=== PATIENT | female | born 1955 ===

== ENCOUNTER 2017-01-18 08:48 | Day surgery (SDC) | payer SELFPAY ==
[2017-01-16 10:49] VITALS: BMI 29.7
[2017-01-18 10:19] VITALS: RESP 18
[2017-01-18] MEDS ORDERED: Lactated Ringer's 1,000 ML IV ONE (10:40)
--- NOTE | 2017-01-18 11:04 | CP.SDSHP ---
Same Day Surgery H & P - History Proposed Procedure: left excions of soft tissue mass Pre-Op Diagnosis: left soft tissue mass removal - Previous Medical/Surgical History Cardiac: Hypertension Pain: 4.Moderate Pain Previous Surgical History: hysterectomy - Allergies Allergies: Allergies No Known Allergies Allergy (Verified 01/18/17 09:59) - Current Medications Current Medications: HCTZ - Physical Exam Vital Signs: Vital Signs 01/18/17 10:16 Temperature 98.4 F Pulse Rate 63 Respiratory 18 Rate Blood Pressure 138/82 O2 Sat by Pulse 95 Oximetry Mental Status: Alert & Oriented x3 Neuro: WNL Heart: WNL Lungs: WNL GI: WNL - {Optional Preform as Required} Integument: Other (soft tissue mass noted to posterior ankle by achilles tendon) - Impression Impression: Pt was seen and examined in SDS. Pt NPO status was confirmed. All Pre-op testing and clearance was in the chart. Pt has exhausted all conservative treatment at this time and is opting for surgical intervention. Pt was explained procedure and post-operative course. All pt's questions were answered to satisfaction. No guarantees were made. Pt understands all risks, benefits and complications of procedure. Pt will follow-up with Dr. Lozano Short Stay Discharge - Short Stay Discharge Admitting Diagnosis/Reason for Visit: Z14.9 Disposition: HOME/ ROUTINE Referrals: Nessa Gibson MD [Primary Care Provider] - Instructions: Cephalexin (By mouth), Oxycodone/Acetaminophen (By mouth) Additional Instructions (Diet, Activity): Patient in good condition for discharge home. Pt to resume medications per medical reconciliation. Resume regular diet. Please keep dressing clean, dry, & intact to surgical site, use plastic bag over bandage for showering, wear post op shoe at all times when ambulating, call clinic if you see signs of infection (redness, swelling, malodor), please make an appointment to see Dr. Lozano in clinic within 1 week for post-op check. You will be given prescriptions for post-operative medication on the day of surgery, after your surgery is complete. It is your responsibility as the patient to bring us any forms or documents you need filled out and/or signed. If you need to speak to a nurse in our clinic please call [phone] and someone will answer the phone Monday from 9AM 5PM. Please leave a message at all other times. If you need to fax our clinic a document, our fax number is: [phone]. For all after-hour concerns: The on-call pager number is [phone]. The pager is held by a podiatry resident 20/03. You can use this to contact the resident physicians if your have any serious concerns either before or after your surgery. Examples of serious after-hour concerns are foul smelling odor with purulent drainage, completely saturated with blood dressings , tight cast that you cannot fit two fingers into, and individual ascending red streaks up the leg. Please keep in mind that prescriptions cannot be signed nor called into the pharmacy by residents of the [facility]. As the patient, it is your job to schedule a post-operative appointment at our clinic. The appointment scheduling phone number is: . Progress Note/Discharge Note with Instructions: - Patient evaluated bedside in recovery s/p surgical procedure. - After surgical procedure patient in NAD - (+) Void, (+) Appetite - Capillary refill time <3s and NVSI intact. - Patient denies complaints at this time - Post operative instructions and plan of care explained to patient at length. - Pt. acknowledges understanding. - Patient stable for DC per podiatric surgery
--- NOTE | 2017-01-18 11:06 | CP.PCM.PN ---
Subjective - Date & Time of Evaluation Date of Evaluation: 01/18/17 Time of Evaluation: 11:04 - Subjective Subjective: 61 year old female with PMH of HTN was seen in [facility] for pre-operative evaluation for left soft tissue mass removal with Dr. Lozano today. Patient has had this soft tissue lesion on the back of her ankle for 3 years, patient denies that it has grown in size but admits to some pain and now would like surgical intervention. NPO status confirmed. Patient is NAD and AAOx3, denies n/v/f/c/ sob/cp. Objective - Vital Signs/Intake and Output Vital Signs (last 24 hours): Temp Pulse Resp BP Pulse Ox 98.4 F 63 18 138/82 95 01/18/17 10:16 01/18/17 10:16 01/18/17 10:16 01/18/17 10:16 01/18/17 10:16 - Constitutional Appears: Well, Non-toxic, No Acute Distress - Extremities Exam Additional comments: Vasc:DP and PT pulses palpable 2/4 b/l. CFT < 3 seconds to all digits b/l. Skin temperature warm to warm from proximal to distal b/l. Neuro: Gross sensation intact b/l. Derm: Skin is well hydrated. No open lesions noted. Nails 1-5 b/l WNL for thickness and lenght. Webspaces 1-4 b/l are CDI. Ortho: Small mass noted to the posterior aspect of the achilles tendon on the left, that is painful to palpation - Neurological Exam Neurological Exam: Alert, Awake, Oriented x3 - Psychiatric Exam Psychiatric exam: Normal Affect, Normal Mood Assessment and Plan - Assessment and Plan (Free Text) Assessment: 61 year old female who presents to [facility] for removal of soft tisue mass to left achilles ankle Plan: Pt was seen and examined in [facility] Pt NPO status was confirmed All Pre-op testing and clearance was in the chart Pt has exhausted all conservative treatment at this time and is opting for surgical intervention Pt was explained procedure and post-operative course All pt's questions were answered to satisfaction No guarantees were made Pt understands all risks, benefits and complications of procedure Pt will follow-up with Dr. Lozano
[2017-01-18] MEDS ORDERED: Lidocaine 1% Inj (20ml) IJ ONE ×2 (11:11→12:00)
[2017-01-18] MEDS ORDERED: Bupivacaine 0.5% Inj(30mL) IJ ONE ×2 (11:11→12:00)
[2017-01-18] MEDS ORDERED: Bupivacaine 0.5% Inj(30mL) ONE (12:37)
[2017-01-18] MEDS ORDERED: Lidocaine 1% Inj (20ml) ONE (12:37)
--- NOTE | 2017-01-18 12:40 | PCM.SURG1 ---
Surgeon's Initial Post Op Note - Surgeon's Notes Surgeon: Dr. Lozano Banquet Server: Dr. López PGY-1, Dr. Florentino PGY-2 Type of Anesthesia: IV Sedation, Local Anesthesia Administered By: Dr. Mckinnon Pre-Operative Diagnosis: left ankle soft tissue mass Operative Findings: see dictation. 15mL 1:1 mix 1% lidocaine plain, 0.5% marcaine plain. 3-0 vicryl, 4-0 nylon Post-Operative Diagnosis: same as preop Operation Performed: left ankle soft tissue mass excision Specimen/Specimens Removed: soft tissue mass Estimated Blood Loss: EBL {In ML}: 1 Blood Products Given: N/A Drains Used: No Drains Post-Op Condition: Good Date of Surgery/Procedure: 01/18/17 Time of Surgery/Procedure: 12:00
[2017-01-18] MEDS ORDERED: Oxycodone/Acetaminophen 5/325 mg Tab PO PRN ×2 (12:41)
[2017-01-18] MEDS ORDERED: HYDROmorphone 0.5 mg/0.5 ml ISec IVP PRN (12:46)
[2017-01-18 16:17] VITALS: O2SAT 96
[2017-01-18 16:41] VITALS: BP 116/78; PULSE 78; TEMP 97.4
--- NOTE | 2017-01-18 21:04 | OP ---
PROCEDURE DATE: 01/18/2017 SURGEON: Dr. Patric Lozano. AUDIOVISUAL LEAD TECHNICIAN: Dr. Litzy Leavitt, PGY1, Dr. Florentino____, PGY-2. APPLICATIONS COORDINATOR: Dr. Mckinnon. ANESTHESIA: IV sedation with local. PREOPERATIVE DIAGNOSIS: Left ankle soft tissue mass. POSTOPERATIVE DIAGNOSIS: Left ankle soft tissue mass. PROCEDURE PERFORMED: Left ankle soft tissue mass removal. INDICATIONS: The patient is a 61-year-old female with the above diagnoses. The patient has exhausted all conservative treatment at this time and is now requiring surgical intervention. The patient signed the consent after careful explanation of all the risks, benefits, and complications of the surgical procedure. No guarantees were given nor implied. PREPARATION: The patient was brought to the operating room and placed on the operating room table in the prone position. After IV sedation was achieved, A total of 15 mL of 1:1 mixture of 1% lidocaine plain and 0.5% Marcaine plain was given in a local V block fashion to the posterior ankle. the patient was then prepped and draped in normal sterile manner and the procedure began. The high ankle tourniquet was then turned up to 250 mmHg and the procedure began. DESCRIPTION OF PROCEDURE: Attention was then directed to the posterior aspect of the left ankle where a 3 cm curvilinear incision was made transversely over the palpable mass approximately 2 cm above the ankle posteriorly. Using blunt dissection, the incision was continued down to subcutaneous tissue. It should be noted that care was taken to identify and retract all vital neurovascular structures. Upon dissection, a fluctuant, well circumscribed, soft tissue mass was noted. Carefully using blunt dissection and an Iris scissor, the soft tissue mass was excised and passed from the operative field. All bleeders were cauterized and ligated as necessary. The wound was then irrigated with copious amounts of sterile normal saline. The subcutaneous tissue was then reapproximated using 3-0 Vicryl in a simple stitch manner and 4-0 nylon was used to reapproximate the skin. The incision site was then dressed with damp 4 x 4 gauze in a wet to dry fashion with Boris, Kerlix and David. POSTOPERATIVE CONDITION: The patient tolerated the anesthesia and procedure well and was transferred to the recovery room with vital signs stable and neurovascular status intact to the left ankle. The patient will be weightbearing as tolerated and will follow up with Dr. Lozano as an outpatient. LITZY LEAVITT DPM Patric Lozano DPM cc: [id number] TT: 01/18/2017 21:03:36 jn MTDD
== END 2017-01-18 16:50 | disposition home or self-care (01) ==
LOC: H.OPSURG 08:48
PROVIDERS: ATTEND Podiatrist
DX: D16.22 Benign neoplasm of long bones of left lower limb (principal)

== ENCOUNTER 2017-02-09 18:47 | Emergency (ER) | payer OTHER ==
[2017-02-09 18:47] VITALS: BMI 29.7
[2017-02-09 18:55] VITALS: BP 149/97; PULSE 69; RESP 16; TEMP 98.5; O2SAT 100
--- NOTE | 2017-02-09 19:23 | ED PDOC ---
HPI: Back Time Seen by Provider: 02/09/17 18:57 Chief Complaint (Nursing): Back Pain Chief Complaint (Provider): Back Pain History Per: Patient Onset/Duration Of Symptoms: Persistent Current Symptoms Are (Timing): Still Present Quality Of Discomfort: "Pain" Additional Complaint(s): Laveren Mireles is a 61 y/o female presenting to the ER on 02/09/2017 with worsening back pain for several days. Patient has had intermittent low back pain for several years but for the past few days pain is worse. She denies any fall or trauma. Patient took advil but this did not help the pain. She denies radiation of pain and denies any acute bowel or bladder dysfunction. She rates current pain as 7/10. Past Medical History Reviewed: Historical Data, Nursing Documentation, Vital Signs Vital Signs: Last Vital Signs Temp 98.5 F 02/09/17 18:52 Pulse 69 02/09/17 18:52 Resp 16 02/09/17 18:52 BP 149/97 H 02/09/17 18:52 Pulse Ox 100 02/09/17 18:52 - Medical History PMH: HTN, Hypercholesterolemia (not taking meds) - Surgical History Other surgeries: Left ankle cyst removal, fibroid removal - Family History Family History: States: Diabetes (Father from diabetes), Hypertension (Mother has high blood pressure) - Living Arrangements Living Arrangements: With Family - Social History Current smoker - smoking cessation education provided: No Alcohol: None Drugs: Denies - Home Medications Home Medications: Ambulatory Orders Medication Instructions Recorded Cephalexin [Keflex] 500 mg PO TID 01/18/17 Hydrochlorothiazide [Microzide] 12.5 mg PO DAILY 01/18/17 oxyCODONE/Acetaminophen [Percocet 5 - 325 mg PO Q4 PRN 01/18/17 5/325 mg Tab] - Allergies Allergies/Adverse Reactions: Allergies Allergy/AdvReac Type Severity Reaction Status Date / Time No Known Allergies Allergy Verified 01/18/17 09:59 Review of Systems ROS Statement: Except As Marked, All Systems Reviewed And Found Negative Constitutional: Negative for: Fever, Chills Cardiovascular: Negative for: Chest Pain Respiratory: Negative for: Cough Gastrointestinal: Negative for: Nausea, Vomiting Genitourinary Female: Negative for: Dysuria, Frequency, Incontinence, Hematuria Musculoskeletal: Positive for: Back Pain. Negative for: Leg Pain Neurological: Negative for: Weakness, Numbness Physical Exam - Reviewed Nursing Documentation Reviewed: Yes Vital Signs Reviewed: No - Physical Exam Appears: Positive for: Well, Non-toxic, No Acute Distress Head Exam: Positive for: ATRAUMATIC, NORMOCEPHALIC Skin: Positive for: Normal Color. Negative for: Rash Eye Exam: Positive for: Normal appearance Cardiovascular/Chest: Positive for: Regular Rate, Rhythm Respiratory: Positive for: Normal Breath Sounds Back: Positive for: Vertebral Tenderness (tenderness across lower lumbar region , no step off or midline tenderness). Negative for: L CVA Tenderness, R CVA Tenderness Extremity: Positive for: Normal ROM. Negative for: Deformity, Swelling Neurologic/Psych: Positive for: Alert, Oriented, Gait (steady ). Negative for: Motor/Sensory Deficits - ECG O2 Sat by Pulse Oximetry: 100 Pulse Ox Interpretation: Normal Medical Decision Making Medical Decision Makin:57 Initial Impression- Acute on chronic back pain Plan: Toradol IM Patient with chronic back pain for several years, worse in last couple of days. No neurological deficits noted on exam, patient is ambulatory with steady gait. Patient requested MRI of lumbar spine. Patient was instructed she will need to follow up with primary doctor to obtain authorization for MRI as outpatient. Pt refused toradol injection and left ED before treatment was complete. Documented by Alex Hutton, acting as a scribe for Nelida Mccoy PA-C All medical record entries made by the Scribe were at my direction and personally dictated by me. I have reviewed the chart and agree that the record accurately reflects my personal performance of the history, physical exam, medical decision making, and the department course for this patient. I have also personally directed, reviewed, and agree with the discharge instructions and disposition. Disposition - Clinical Impression Clinical Impression: Back pain, Chronic back pain - Patient ED Disposition Is Patient to be Admitted: No - Disposition Disposition: Eloped (Patient left ED before treatment complete) Disposition Time: 20:01 Condition: UNKNOWN
== END 2017-02-09 19:20 | disposition left against medical advice (07) ==
LOC: H.ER 18:47
DX: M54.5 Low back pain (principal); G89.29 Other chronic pain; M54.9 Dorsalgia, unspecified

== ENCOUNTER 2017-05-06 06:57 | Observation (INO) | payer BC, OTHER ==
[2017-05-06 06:58] VITALS: BMI 29.7
[2017-05-06 07:30] VITALS: BP 117/82; PULSE 69; RESP 18; TEMP 98.6; O2SAT 97
--- NOTE | 2017-05-06 07:31 | ED PDOC ---
HPI: Chest Pain Time Seen by Provider: 05/06/17 07:20 Chief Complaint (Nursing): Chest Pain Chief Complaint (Provider): Chest Pain History Per: Patient History/Exam Limitations: no limitations Current Symptoms Are (Timing): Still Present Additional Complaint(s): Laverne is a 61 y/o female with a past medical history of hypertension, hypercholesterolemia, and TIA, who presents to the ED complaining of mid- sternal chest pain radiating to left arm, onset last night. States the chest pressure is constant, but left arm pain comes and goes. Patient had a Neurology appointment yesterday, and was told her blood pressure was high. Denies any associated shortness of breath, nausea, or vomiting. Patient reports compliance with taking daily Aspirin. PMD: [facility] Past Medical History Reviewed: Historical Data, Nursing Documentation, Vital Signs Vital Signs: Last Vital Signs Temp 98.6 F 05/06/17 07:26 Pulse 69 05/06/17 07:26 Resp 18 05/06/17 07:26 BP 117/82 05/06/17 07:26 Pulse Ox 97 05/06/17 07:26 - Medical History PMH: HTN, Hypercholesterolemia, TIA Denies: Chronic Kidney Disease - Surgical History Other surgeries: Colonoscopy, left ankle cyst removal - Family History Family History: States: Diabetes (Father from diabetes), Hypertension (Mother has high blood pressure) - Social History Current smoker - smoking cessation education provided: No Alcohol: Social Drugs: Denies - Immunization History Hx Tetanus Toxoid Vaccination: No Hx Influenza Vaccination: No Hx Pneumococcal Vaccination: No - Home Medications Home Medications: Ambulatory Orders Medication Instructions Recorded Aspirin [Ecotrin] 81 mg PO DAILY #30 04/14/17 Atorvastatin [Lipitor] 40 mg PO DIN #30 tab 04/14/17 hydroCHLOROthiazide [Microzide] 12.5 mg PO DAILY #14 cap 04/14/17 - Allergies Allergies/Adverse Reactions: Allergies Allergy/AdvReac Type Severity Reaction Status Date / Time No Known Allergies Allergy Verified 04/12/17 15:23 PANCHO Risk Score for UA/NSTEMI - PANCHO Risk Score Age > 64: NO 3 or more CAD Risk Factors: YES Known CAD (Stenosis greater than 50%): NO Aspirin use in past 7 days: YES Severe Angina: NO EKG ST changes greater than 0.5mm: NO Positive Cardiac Marker: NO PANCHO Score: 2 Risk %: 8% Review of Systems ROS Statement: Except As Marked, All Systems Reviewed And Found Negative Cardiovascular: Positive for: Chest Pain Respiratory: Negative for: Shortness of Breath Gastrointestinal: Negative for: Nausea, Vomiting Musculoskeletal: Positive for: Arm Pain (left) Physical Exam - Reviewed Nursing Documentation Reviewed: Yes Vital Signs Reviewed: Yes - Physical Exam Appears: Positive for: Non-toxic, No Acute Distress Head Exam: Positive for: ATRAUMATIC, NORMAL INSPECTION, NORMOCEPHALIC Skin: Positive for: Normal Color, Warm, Dry Eye Exam: Positive for: EOMI, Normal appearance, PERRL Neck: Positive for: Normal, Painless ROM, Supple Cardiovascular/Chest: Positive for: Regular Rate, Rhythm. Negative for: Murmur Respiratory: Positive for: Normal Breath Sounds. Negative for: Accessory Muscle Use, Respiratory Distress Gastrointestinal/Abdominal: Positive for: Normal Exam, Soft. Negative for: Tenderness Back: Positive for: Normal Inspection. Negative for: L CVA Tenderness, R CVA Tenderness, Vertebral Tenderness Extremity: Positive for: Normal ROM, Capillary Refill (< 2 sec). Negative for: Deformity Neurologic/Psych: Positive for: Alert, Oriented. Negative for: Motor/Sensory Deficits - Laboratory Results Result Diagrams: 05/06/17 07:45 05/06/17 07:45 - Radiology X-Ray: Interpreted by Me, Viewed By Me X-Ray Interpretation: No Acute Disease Medical Decision Making Medical Decision Making: Time: 07:34 Initial Impression: Chest pain Initial Plan: --EKG --CMP --Troponin I --CBC --PTT --Prothrombin time --Urine dipstick --Urinalysis --Chest X-Ray Time: 08:36 --Given 325 mg PO --Paged [facility] practice resident for consult Time: 08:46 --Patient will be admitted inpatient to Observation Telemetry for chest pain, under the service of Dr. Gaitan. Scribe Attestation: Documented by Margaret Carmona, acting as a scribe for Jyoti Cortez MD Provider Scribe Attestation: All medical record entries made by the Scribe were at my direction and personally dictated by me. I have reviewed the chart and agree that the record accurately reflects my personal performance of the history, physical exam, medical decision making, and the department course for this patient. I have also personally directed, reviewed, and agree with the discharge instructions and disposition. Disposition - Clinical Impression Clinical Impression: Chest pain - Patient ED Disposition Is Patient to be Admitted: Yes - Disposition Disposition Time: 08:46 Condition: STABLE - Pt Status Changed To: Hospital Disposition Of: Observation - POA Present On Arrival: None
[2017-05-06 08:00] LABS: ALB/GLOB RATIO 1.3 (1.0-2.1); ALKALINE PHOSPHATASE 100 U/L (38-126); ALT/SGPT 30 U/L (9-52); AST/SGOT 27 U/L (14-36); BILIRUBIN,TOTAL 0.5 mg/dl (0.2-1.3); BLOOD UREA NITROGEN 16 mg/dl (7-17); CALCIUM 9.6 mg/dL (8.4-10.2); CARBON DIOXIDE 30 mmol/L (22-30); CHLORIDE 99 mmol/L (98-107); GFR AFRICAN-AMERICAN > 60; GLUCOSE,RANDOM 109 mg/dL (65-105); POTASSIUM 4.1 MMOL/L (3.6-5.0); SODIUM 140 mmol/l (132-148); TOTAL PROTEIN 7.7 G/DL (6.3-8.2)
[2017-05-06 08:02] LABS: BASO % 0.4 % (0.0-2.0); EOS # 0.1 K/uL (0.0-0.7); EOS % 1.7 % (0.0-4.0); LYMPH # 2.4 K/uL (1.0-4.3); MEAN CELL VOLUME 82.3 fl (81.0-99.0); MEAN CORPUSCULAR HEMOGLOBIN 27.8 pg (27.0-31.0); MEAN CORPUSCULAR HGB CONC 33.8 g/dL (33.0-37.0); MEAN PLATELET VOLUME 8.7 fl (7.2-11.7); MONO # 0.7 K/uL (0.0-0.8); NEUT % 60.9 % (50.0-75.0); RED CELL DISTRIBUTION WIDTH 13.6 % (11.5-14.5); WHITE BLOOD COUNT 8.2 K/uL (4.8-10.8)
[2017-05-06 08:06] LABS: PARTIAL THROMBOPLASTIN TIME 36.7 Seconds (25.6-37.1)
[2017-05-06 09:00] LABS: RBC URINE 2 /hpf (0-3); URINE BILIRUBIN NEGATIVE (NEGATIVE); URINE BLOOD NEGATIVE (NEGATIVE); URINE COLOR YELLOW (YELLOW); URINE GLUCOSE (UA) NEG (Normal); URINE KETONE NEGATIVE (NEGATIVE); URINE LEUKOCYTE ESTERASE NEG Leu/uL (Negative); URINE PROTEIN NEGATIVE (NEGATIVE); URINE UROBILINOGEN 0.2-1.0 mg/dL (0.2-1.0); WBC URINE < 1 /hpf (0-5)
--- NOTE | 2017-05-06 10:02 | RAD ---
HISTORY: Chest pain. Portable study at upright 07:40. COMPARISON: 11/17/2016. FINDINGS: LUNGS: No active pulmonary disease. PLEURA: No significant pleural effusion identified, no pneumothorax apparent. CARDIOVASCULAR: No radiographic findings to suggest acute or significant cardiovascular disease. OSSEOUS STRUCTURES: No significant abnormalities. VISUALIZED UPPER ABDOMEN: Normal. OTHER FINDINGS: None. IMPRESSION: No active disease. No significant interval change compared to the prior examination(s).
--- NOTE | 2017-05-06 11:08 | CP.PCM.PN ---
Subjective - Date & Time of Evaluation Date of Evaluation: 05/06/17 Time of Evaluation: 09:26 - Subjective Subjective: Pt was seen, examined, and evaluated in the ER for complaints of chest pain. BP 117/82. Physical exam wnl including RRR, normal S1 S2, no murmurs, no JVD, no hepatojugular reflex, no wheezing, no rhonchi, no adventitious sounds, and no abdominal tenderness. Labs and CXR wnl. When seen for a second time following her admission refusal, she stated she only wanted have her blood pressure checked. Despite explaining at length the reasons to stay and potential negative consequences of leaving prematurely, she declined to be admitted.
--- NOTE | 2017-05-08 11:23 | CARD ---
APPROVED REPORT EKG Measurement Heart [id number] <Conclusion> Normal sinus rhythm Normal ECG
== END 2017-05-06 10:15 | disposition left against medical advice (07) ==
LOC: H.ER 06:57 → H.ERHOLD 08:46
PROVIDERS: ADMIT Family Medicine Geriatric Medicine; ATTEND Family Medicine Geriatric Medicine
DX: R07.9 Chest pain, unspecified (principal); E11.9 Type 2 diabetes mellitus without complications; I10 Essential (primary) hypertension; E78.00 Pure hypercholesterolemia, unspecified; Z86.73 Personal history of transient ischemic attack (TIA), and cerebral infarction without residual deficits; Z79.82 Long term (current) use of aspirin
CPT/HCPCS: 71010; 80053; 81003; 84484; 85025; 85610; 85730; 93005; 99283; G0378

== ENCOUNTER 2017-06-09 18:07 | Emergency (ER) | payer MEDICAID, OTHER ==
[2017-06-09 18:07] VITALS: BMI 29.7
[2017-06-09 18:23] VITALS: BP 143/86; PULSE 78; RESP 16; TEMP 98.9; O2SAT 98
--- NOTE | 2017-06-09 21:03 | ED PDOC ---
HPI: CCC, URI, Sore Throat Time Seen by Provider: 06/09/17 18:29 Chief Complaint (Nursing): Cough, Cold, Congestion Chief Complaint (Provider): COugh History Per: Patient History/Exam Limitations: no limitations Have you had recent travel within the past 21 days to any of the following countries: [place], [place], [place] or [place]?: No Onset/Duration Of Symptoms: Days Current Symptoms Are (Timing): Still Present Additional History Per: Patient Additional Complaint(s): Patient present for evaluation of a non-productive cough, present for the past 3 weeks. she reports she followed up with her PCP who informed her the symptoms were due to her blood pressure medication; patient is unsure of her old back pain meds but states her new medications are HCTZ, Amlodopine, Lisinopril. She states her cough has worsened after taking these medications. She denies any fever,chest pain, hemoptysis, shortness of breath. She offers no other medical complaints. Past Medical History Reviewed: Historical Data Vital Signs: Last Vital Signs Temp 98.9 F 06/09/17 18:20 Pulse 78 06/09/17 18:20 Resp 16 06/09/17 18:20 BP 143/86 06/09/17 18:20 Pulse Ox 98 06/09/17 21:26 - Medical History PMH: HTN, Hypercholesterolemia, TIA Denies: Chronic Kidney Disease - Surgical History Surgical History: No Surg Hx - Family History Family History: States: Diabetes (Father from diabetes), Hypertension (Mother has high blood pressure) - Immunization History Hx Tetanus Toxoid Vaccination: No Hx Influenza Vaccination: No Hx Pneumococcal Vaccination: No - Home Medications Home Medications: Ambulatory Orders Medication Instructions Recorded Aspirin [Ecotrin] 81 mg PO DAILY #30 04/14/17 Atorvastatin [Lipitor] 40 mg PO DIN #30 tab 04/14/17 hydroCHLOROthiazide [Microzide] 12.5 mg PO DAILY #14 cap 04/14/17 Albuterol HFA [Ventolin HFA 90 2 puff IH [id number] PRN #60 puff 06/09/17 mcg/actuation (8 g)] Azithromycin [Zithromax] 250 mg PO DAILY #6 tab 06/09/17 Benzonatate [Tessalon Perle] 100 mg PO Q8 PRN #30 capsule 06/09/17 - Allergies Allergies/Adverse Reactions: Allergies Allergy/AdvReac Type Severity Reaction Status Date / Time No Known Allergies Allergy Verified 04/12/17 15:23 Review of Systems Constitutional: Negative for: Fever, Chills Cardiovascular: Negative for: Chest Pain Respiratory: Positive for: Cough. Negative for: Shortness of Breath, Hemoptysis Physical Exam - Reviewed Nursing Documentation Reviewed: Yes Vital Signs Reviewed: Yes - Physical Exam Appears: Positive for: Non-toxic, No Acute Distress Skin: Positive for: Warm, Dry Eye Exam: Positive for: EOMI, PERRL ENT: Positive for: Normal ENT Inspection, TM Is/Are (normal ). Negative for: Pharyngeal Erythema, Tonsillar Exudate, Tonsillar Swelling Neck: Positive for: Supple Cardiovascular/Chest: Positive for: Regular Rate, Rhythm Respiratory: Positive for: Normal Breath Sounds. Negative for: Respiratory Distress - ECG O2 Sat by Pulse Oximetry: 98 (RA) Pulse Ox Interpretation: Normal - Radiology X-Ray: Interpreted by Me (CXR) X-Ray Interpretation: No Acute Disease Medical Decision Making Medical Decision Making: Time: 1852 Impression: URI Plan: -- Chest X-Ray Reassess Time: 1919 Chest X-Ray reviewed and shows to acute distress. Stable for d/c home. Scribe Attestation: Documented by Julianne Sullivan acting as a scribe for NILAM Mcdonald Provider Attestation: All medical record entries made by the Scribe were at my direction and personally dictated by me. I have reviewed the chart and agree that the record accurately reflects my personal performance of the history, physical exam, medical decision making, and the department course for this patient. I have also personally directed, reviewed, and agree with the discharge instructions and disposition. Disposition - Clinical Impression Clinical Impression: Cough - Patient ED Disposition Is Patient to be Admitted: No - Disposition Referrals: [facility] [Outside] [facility] [Outside] Disposition: Routine/Home Disposition Time: 20:55 Condition: STABLE Prescriptions: Albuterol HFA [Ventolin HFA 90 mcg/actuation (8 g)] 2 puff IH [id number] PRN #60 puff PRN Reason: Cough Azithromycin [Zithromax] 250 mg PO DAILY #6 tab Benzonatate [Tessalon Perle] 100 mg PO Q8 PRN #30 capsule PRN Reason: Cough Instructions: Acute Cough (ED) Forms: [employer] (Nepali) Print Language: AFGHAN
--- NOTE | 2017-06-10 10:43 | RAD ---
HISTORY: cough COMPARISON: 05/06/2017 TECHNIQUE: Chest PA and lateral FINDINGS: LUNGS: No active pulmonary disease. PLEURA: No significant pleural effusion identified. No pneumothorax apparent. CARDIOVASCULAR: Unchanged. OSSEOUS STRUCTURES: No significant abnormalities. VISUALIZED UPPER ABDOMEN: Normal. OTHER FINDINGS: None. IMPRESSION: No active disease.
== END 2017-06-09 19:45 | disposition home or self-care (01) ==
LOC: H.ER 18:07
DX: R05 Cough (principal); E78.00 Pure hypercholesterolemia, unspecified; I10 Essential (primary) hypertension; Z79.82 Long term (current) use of aspirin; Z86.73 Personal history of transient ischemic attack (TIA), and cerebral infarction without residual deficits

== ENCOUNTER 2017-12-05 11:01 | Emergency (ER) | payer MEDICAID ==
[2017-12-05 11:01] VITALS: BMI 28.5
[2017-12-05 11:18] VITALS: BP 149/89; PULSE 76; RESP 21; TEMP 99; O2SAT 98
--- NOTE | 2017-12-05 13:24 | ED PDOC ---
Upper Extremity Pain/Injury Time Seen by Provider: 12/05/17 12:18 Chief Complaint (Nursing): Upper Extremity Problem/Injury Chief Complaint (Provider): Upper Extremity Pain History Per: Patient History/Exam Limitations: language barrier Onset/Duration Of Symptoms: Days Current Symptoms Are (Timing): Still Present Additional Complaint(s): Laverne Crain is a 62 year old female with a past medical history of hypertension, gastroesophageal reflux disease, and cardiac disorders, who is presenting to the ED with complaints of worsening upper back pain with associated neck, right shoulder and arm pain, onset a few days ago. 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 She reports that last year in April, she was diagnosed with a Stroke at [place], and she followed up with a neurologist. Patient reports feeling feverish and mild numbness and discomfort in her arm and shoulder, with radiating pain to the back. She denies any injury, fall, or trauma. Note: patient reported additional complaints regarding her blood pressure medications, but reports that she will be seeing her PMD regarding this issue tomorrow. PMD: Vic Shanks Past Medical History Reviewed: Historical Data, Nursing Documentation, Vital Signs Vital Signs: Last Vital Signs Temp 99.0 F 12/05/17 11:18 Pulse 76 12/05/17 11:18 Resp 21 12/05/17 11:18 BP 149/89 12/05/17 11:18 Pulse Ox 98 12/05/17 11:18 - Medical History PMH: GERD, HTN, Hypercholesterolemia, TIA Denies: Chronic Kidney Disease - Surgical History Other surgeries: hysterectomy - Family History Family History: States: Diabetes (Father from diabetes), Hypertension (Mother has high blood pressure) - Social History Alcohol: Social - Immunization History Hx Tetanus Toxoid Vaccination: No Hx Influenza Vaccination: No Hx Pneumococcal Vaccination: No - Home Medications Home Medications: Ambulatory Orders Medication Instructions Recorded amLODIPine [Norvasc] 5 mg PO DAILY 30 Days #30 tab 06/16/17 Famotidine [Pepcid] 1 tab PO BID #30 tab 09/05/17 Naproxen Sodium 550 mg PO TID #30 tablet 12/05/17 - Allergies Allergies/Adverse Reactions: Allergies Allergy/AdvReac Type Severity Reaction Status Date / Time No Known Allergies Allergy Verified 12/05/17 11:36 Review of Systems ROS Statement: Except As Marked, All Systems Reviewed And Found Negative Constitutional: Positive for: Fever (subjective) Musculoskeletal: Positive for: Neck Pain (mild), Shoulder Pain (right), Arm Pain (right), Back Pain (upper) Neurological: Positive for: Numbness (mild) Physical Exam - Reviewed Nursing Documentation Reviewed: Yes Vital Signs Reviewed: Yes - Physical Exam Appears: Positive for: Non-toxic, No Acute Distress Head Exam: Positive for: ATRAUMATIC, NORMAL INSPECTION, NORMOCEPHALIC Skin: Positive for: Normal Color Eye Exam: Positive for: Normal appearance Neck: Positive for: Normal Cardiovascular/Chest: Positive for: Regular Rate, Rhythm. Negative for: Gallop , Murmur Respiratory: Positive for: Normal Breath Sounds. Negative for: Respiratory Distress Gastrointestinal/Abdominal: Positive for: Normal Exam, Soft. Negative for: Tenderness Back: Positive for: Normal Inspection. Negative for: L CVA Tenderness, R CVA Tenderness, Vertebral Tenderness Extremity: Positive for: Normal ROM, Capillary Refill (normal, less than 2 seconds), Other (5/5 strength ). Negative for: Deformity, Swelling Neurologic/Psych: Positive for: Alert, Oriented. Negative for: Motor/Sensory Deficits - ECG O2 Sat by Pulse Oximetry: 98 (RA) Pulse Ox Interpretation: Normal Medical Decision Making Medical Decision Making: Time: 12:40 Plan: --Flexeril 10 mg PO --Toradol 60 mg IM --Tylenol 650 mg PO --Right Shoulder X-Ray X-Ray: No calcific tendonitis. No fractures. No dislocations. No separations. Normal X- Ray. No acute findings. Scribe Attestation: Documented by Yumiko Burton, acting as a scribe for Arnoldo San PA-C Provider Scribe Attestation: All medical record entries made by the Scribe were at my direction and personally dictated by me. I have reviewed the chart and agree that the record accurately reflects my personal performance of the history, physical exam, medical decision making, and the department course for this patient. I have also personally directed, reviewed, and agree with the discharge instructions and disposition. Disposition - Clinical Impression Clinical Impression: Shoulder pain, right, Shoulder tendinitis - Patient ED Disposition Is Patient to be Admitted: No Doctor Will See Patient In The: Office Counseled Patient/Family Regarding: Diagnosis, Need For Followup - Disposition Referrals: Ashwin Torrez MD [Staff Provider] - Disposition: Routine/Home Disposition Time: 14:32 Condition: GOOD Additional Instructions: REST SHOULDER FOLLOW UP WITH ORTHOPEDIST and your PMD Prescriptions: Naproxen Sodium 550 mg PO TID #30 tablet Instructions: Shoulder Tendinopathy (DC), Shoulder Pain (DC) Forms: [employer] (Amharic) Print Language: TRISTANIAN
--- NOTE | 2017-12-05 15:24 | RAD ---
PROCEDURE: Radiographs of the Right Shoulder HISTORY: reduced ROM COMPARISON: None. FINDINGS: BONES: Normal. No fracture. JOINTS: Erosive changes acromioclavicular joint and suggestion of widening of the joint space. These are likely chronic findings. Preserved glenohumeral relationship. SOFT TISSUES: Normal. OTHER FINDINGS: None. IMPRESSION: Degenerative/erosive changes right acromioclavicular joint. No acute findings.
== END 2017-12-05 14:48 | disposition home or self-care (01) ==
LOC: H.ER 11:01
DX: M65.811 Other synovitis and tenosynovitis, right shoulder (principal); M25.511 Pain in right shoulder; K21.9 Gastro-esophageal reflux disease without esophagitis; I10 Essential (primary) hypertension; Z86.73 Personal history of transient ischemic attack (TIA), and cerebral infarction without residual deficits; Z90.710 Acquired absence of both cervix and uterus; Z83.3 Family history of diabetes mellitus; E78.00 Pure hypercholesterolemia, unspecified
CPT/HCPCS: 73030; 96372; 99282; J1885

== ENCOUNTER 2018-01-07 14:55 | Emergency (ER) | payer MEDICAID ==
[2018-01-07 14:55] VITALS: BMI 28.5
[2018-01-07 15:13] VITALS: BP 145/96; PULSE 85; RESP 17; TEMP 98.8; O2SAT 98
--- NOTE | 2018-01-07 15:36 | ED PDOC ---
History of Present Illness History of Present Illness: 62 year old female presents to the emergency department complaining of a non- productive cough for the past nine months, and for right shoulder pain for the past three months. She reports she has been evaluated by Dr. Shanks for her cough and was advised to follow up with specialist Dr. Mendez who, after an endoscopy, diagnosed her with gastritis. For this, she notes being prescribed omeprazole with no relief. As for her shoulder pain, she states she was prescribed ibuprofen, which helps, but the pain still persists. In October and November of this year, she reports having a chest x-ray and shoulder x-ray done, respectively. Her stated concern for today's visit is wanting to know whether or not she has cancer, since her friend who had a cough was just diagnosed with lung cancer. She denies hemoptysis, chest pain, weakness, numbness, tingling, fever, trauma, a history of smoking, or family history of lung cancer. PMD: Vic Shanks HPI: Influenza Time Seen by Provider: 01/07/18 15:16 Chief Complaint: Cough, Cold, Congestion Chief Complaint (Provider): Cough, Cold, Congestion History Per: Patient Exam Limitations: no limitations Onset/Duration Of Symptoms: Days (several months) Past Medical History Reviewed: Historical Data, Nursing Documentation, Vital Signs Vital Signs: Last Vital Signs Temp 98.8 F 01/07/18 15:08 Pulse 85 01/07/18 15:08 Resp 17 01/07/18 15:08 BP 145/96 H 01/07/18 15:08 Pulse Ox 98 01/07/18 15:08 - Medical History PMH: Gastritis, GERD, HTN, Hypercholesterolemia, TIA Denies: Chronic Kidney Disease - Family History Family History: States: Diabetes (Father from diabetes), Hypertension (Mother has high blood pressure) - Social History Current smoker - smoking cessation education provided: No Alcohol: Occasional Drugs: Denies - Immunization History Hx Tetanus Toxoid Vaccination: No Hx Influenza Vaccination: No Hx Pneumococcal Vaccination: No - Home Medications Home Medications: Ambulatory Orders Medication Instructions Recorded amLODIPine [Norvasc] 5 mg PO DAILY 30 Days #30 tab 06/16/17 Famotidine [Pepcid] 1 tab PO BID #30 tab 09/05/17 Naproxen Sodium 550 mg PO TID #30 tablet 12/05/17 - Allergies Allergies/Adverse Reactions: Allergies Allergy/AdvReac Type Severity Reaction Status Date / Time No Known Allergies Allergy Verified 12/05/17 11:36 Review of Systems ROS Statement: Except As Marked, All Systems Reviewed And Found Negative Constitutional: Negative for: Fever, Other (trauma) Cardiovascular: Negative for: Chest Pain Respiratory: Positive for: Cough (non productive). Negative for: Hemoptysis Musculoskeletal: Positive for: Shoulder Pain (right sided) Neurological: Negative for: Weakness, Numbness, Other (tingling) Physical Exam - Reviewed Nursing Documentation Reviewed: Yes Vital Signs Reviewed: Yes - Physical Exam Appears: Positive for: No Acute Distress Skin: Positive for: Normal Color, Warm, Dry Eye Exam: Positive for: EOMI, Normal appearance, PERRL ENT: Positive for: Normal ENT Inspection Neck: Positive for: Normal, Painless ROM Cardiovascular/Chest: Positive for: Regular Rate, Rhythm. Negative for: Murmur Respiratory: Positive for: Normal Breath Sounds. Negative for: Respiratory Distress Pulses-Radial (L): 2+ Pulses-Radial (R): 2+ Extremity: Positive for: Normal ROM (right shoulder), Other (equal gis professor strength bilaterally). Negative for: Deformity Neurologic/Psych: Positive for: Alert, Oriented (x3) Medical Decision Making Medical Decision Making: Initial Impression: shoulder pain, chronic cough 15:30 Pt offered x-rays (chest, shoulder) but refused. States she will follow up with her doctor. She just wanted to know if she has cancer, and even after being informed that preliminary tests must be run first, she still refused x- rays. Advised to follow up with Dr. Shanks. Also, pt was offered pain meds but refused, and said she will continue to just take her Ibuprofen. Scribe Attestation: Documented by Mellisa Ga, acting as a scribe for Armando Tello PA-C Provider Scribe Attestation: All medical entries made by the Scribe were at my direction and personally dictated by me. I have reviewed the chart and agree that the record accurately reflects my personal performance of the history, physical exam, medical decision making, and the department course for this patient. I have also personally directed, reviewed, and agree with the discharge instructions and disposition. - ECG O2 Sat by Pulse Oximetry: 98 (RA) Pulse Ox Interpretation: Normal Disposition - Clinical Impression Clinical Impression: Chronic cough, Shoulder pain - Patient ED Disposition Is Patient to be Admitted: No - Disposition Referrals: [facility] [Outside] [facility] [Outside] Disposition: Routine/Home Disposition Time: 15:34 Condition: STABLE Additional Instructions: FOLLOW UP WITH [facility] FOR FURTHER EVALUATION RETURN TO ED IMMEDIATELY IF SYMPTOMS WORSEN Instructions: Cough, Adult (DC), Shoulder Pain (DC) Forms: [employer] (Tuvaluan) Print Language: SLOVENIAN
== END 2018-01-07 15:43 | disposition home or self-care (01) ==
LOC: H.ER 14:55
DX: R05 Cough (principal); M25.511 Pain in right shoulder; C34.90 Malignant neoplasm of unspecified part of unspecified bronchus or lung; Z86.73 Personal history of transient ischemic attack (TIA), and cerebral infarction without residual deficits